=== PATIENT | female | born 1990 | race Caucasian/White ===

== ENCOUNTER → 2020-10-04 | Outpatient (CLI) | payer BC, OTHER ==
[~2020-10-04] MED LIST: ARMOUR THYROID90 MG PO; COLACE100 MG PO; ENOXAPARIN100 MG/1 M SC; OMNICEF 300 MG300 MG PO; PRENATAL TABLE1 EAC1 PO; VITAMIN D21250 MCG PO
== END ==
LOC: HEART 5 11:06
DX: R06.02 Shortness of breath (principal)
CPT/HCPCS: 94010

== ENCOUNTER → 2020-12-15 | Outpatient (CLI) | payer BC, OTHER ==
[2020-12-15 20:18] LABS: HEMOGLOBIN 11.2 gm/dl (12.3-15.3); RED BLOOD COUNT 4.1 M/UL (4.00-5.10); WHITE BLOOD COUNT 10.3 K/UL (4.5-11.0)
== END ==
LOC: GENOP 18:14
PROVIDERS: Obstetrics & Gynecology
DX: O42.913 Preterm premature rupture of membranes, unspecified as to length of time between rupture and onset of labor, third trimester (principal); O99.283 Endocrine, nutritional and metabolic diseases complicating pregnancy, third trimester; E03.9 Hypothyroidism, unspecified; O99.013 Anemia complicating pregnancy, third trimester; D50.9 Iron deficiency anemia, unspecified; O99.891 Other specified diseases and conditions complicating pregnancy; M79.7 Fibromyalgia; R11.0 Nausea; Z86.711 Personal history of pulmonary embolism; Z88.1 Allergy status to other antibiotic agents; Z79.899 Other long term (current) drug therapy; Z3A.35 35 weeks gestation of pregnancy; Z20.822 Contact with and (suspected) exposure to COVID-19
CPT/HCPCS: 36415; 81001; 83518; 85025; 96365; 96366; 96372; J0702; J7120; U0002

== ENCOUNTER → 2021-05-11 | Outpatient (CLI) | payer BC | LOC: RAD 17:19 | DX: M13.0 Polyarthritis, unspecified (principal); R53.82 Chronic fatigue, unspecified; M79.7 Fibromyalgia; L65.9 Nonscarring hair loss, unspecified; R76.0 Raised antibody titer | CPT/HCPCS: 72100; 73130; 73562; 73630 ==

== ENCOUNTER 2021-09-08 14:20 | Emergency (ER) | payer BC ==
[2021-09-08 15:16] LABS: HEMOGLOBIN 12.8 gm/dl (12.3-15.3); RED BLOOD COUNT 4.78 M/UL (4.00-5.10)
[2021-09-08 15:50] LABS: BUN/CREATININE RATIO 8 (0-10)
== END 2021-09-08 17:00 | disposition home or self-care (01) ==
LOC: ER1 14:20
PROVIDERS: Nurse Practitioner
DX: R21 Rash and other nonspecific skin eruption (principal); Z20.822 Contact with and (suspected) exposure to COVID-19; Z88.0 Allergy status to penicillin; Z86.711 Personal history of pulmonary embolism
CPT/HCPCS: 0240U; 80053; 81001; 85025; 85379; 93005; 99283